=== PATIENT | female | born 1990 | race Caucasian/White ===

== ENCOUNTER → 2017-09-14 | Outpatient (REF) | payer OTHER | LOC: M LAB REF 09:36 | DX: N39.0 Urinary tract infection, site not specified (principal) ==

== ENCOUNTER → 2017-10-16 | Outpatient (REF) | payer OTHER ==
[2017-10-16 23:12] LABS: CHLAMYDIA DNA AMPLIFICATION NEGATIVE (NEGATIVE); GC DNA AMPLIFICATION NEGATIVE (NEGATIVE)
== END ==
LOC: M LAB REF 20:16
DX: R30.0 Dysuria (principal)

== ENCOUNTER → 2018-08-22 | Outpatient (CLI) | payer BC ==
[2018-08-22 13:56] LABS: BASO % 0.4 % (0.0-1.0); EOS # 0.1 10^3/uL (0.0-0.50); EOS % 1.2 % (0.0-3.0); HEMATOCRIT 40.1 % (36.0-47.0); HEMOGLOBIN 13.8 g/dl (12.0-15.5); IMMATURE GRANULOCYTE % 0.7 % (0-3.0); LYMPH # 2.2 10^3/uL (1.5-6.5); MEAN CORPUSCULAR HEMOGLOBIN 30.1 pg (27.0-33.0); MEAN CORPUSCULAR HGB CONC 34.4 g/dl (32.0-36.5); MEAN CORPUSCULAR VOLUME 87.4 fl (80.0-96.0); MONO # 0.7 10^3/uL (0.0-0.8); MONO % 7.4 % (0.0-5.0); NEUTROPHILS # 5.8 10^3/uL (1.8-7.7); NEUTROPHILS % 65.3 % (36.0-66.0); PLATELET COUNT, AUTOMATED 286 10^3/uL (150-450); RED BLOOD COUNT 4.59 10^6/uL (4.00-5.40); RED CELL DISTRIBUTION WIDTH 12.2 % (11.5-14.5)
[2018-08-22 14:48] LABS: HBsAg Prenatal NEGATIVE (NEGATIVE); HIV 1&2 SCREEN CENTAUR NEGATIVE (NEGATIVE); RUBELLA IgG QUALITATIVE EQUIVOCAL (IMMUNE)
[2018-08-22 14:48] LABS: HEPATITIS C VIRUS ABY INDEX 0.1 INDEX (<0.8)
[2018-08-22 15:50] LABS: CHLAMYDIA DNA AMPLIFICATION NEGATIVE (NEGATIVE); GC DNA AMPLIFICATION NEGATIVE (NEGATIVE)
== END ==
LOC: M SMT 09:17
DX: Z36.89 Encounter for other specified antenatal screening (principal)
CPT/HCPCS: 86762

== ENCOUNTER → 2018-09-19 | Outpatient (CLI) | payer BC | LOC: M SMT 09:41 | PROVIDERS: ATTEND Advanced Practice Midwife | DX: Z13.79 Encounter for other screening for genetic and chromosomal anomalies (principal) ==

== ENCOUNTER → 2018-11-06 | Outpatient (CLI) | payer BC ==
--- NOTE | 2018-11-06 11:36 | REP ---
Clinical: Anatomical evaluation. Comparison: None. Findings: Examination demonstrates a single live intrauterine in cephalic presentation. motion is identified by technologist. Placenta is noted right fundal and grade grade 1 without evidence for placenta previa or abruption. Amniotic fluid volume is normal. Cervix measures 3.4 cm in length and appears closed. No evidence for nuchal cord. Gestational age by current measurements 19 weeks 1 day with UNIQUE 04/01/2019 . FHR equals 144 beats per minute. BPD 4.5 cm 19 weeks 3 days HC 16.4 cm 19 weeks 1 day AC 14.3 cm 19 weeks 5 days FL 2.9 cm 19 weeks 0 days HL 2.8 cm 19 weeks 1 day HC/AC ratio 1.14 Estimated weight 287 grams ( 55th percentile). Anatomical assessment demonstrates normal structures including cranium, choroid plexus, cavum, cerebellum/posterior fossa, facial features, lungs, four-chamber heart/ventricular outflow tracts, diaphragm, stomach, cord insertion/three-vessel cord, kidneys/bladder, spine, and extremities. Impression: 1. Single live intrauterine in cephalic presentation demonstrating appropriate weight to biometrical measurements. 2. Anatomical assessment is complete and normal. Electronically Signed by Garrett Amor MD 11/06/2018 09:19 A
== END ==
LOC: M SMT 08:16
PROVIDERS: ATTEND Obstetrics & Gynecology
DX: Z34.82 Encounter for supervision of other normal pregnancy, second trimester (principal); Z36.89 Encounter for other specified antenatal screening; Z3A.19 19 weeks gestation of pregnancy

== ENCOUNTER → 2018-12-19 | Outpatient (CLI) | payer BC ==
[2018-12-19 13:09] LABS: HEMATOCRIT 34.9 % (36.0-47.0); HEMOGLOBIN 11.8 g/dl (12.0-15.5); MEAN CORPUSCULAR HEMOGLOBIN 30.7 pg (27.0-33.0); MEAN CORPUSCULAR HGB CONC 33.8 g/dl (32.0-36.5); MEAN CORPUSCULAR VOLUME 90.9 fl (80.0-96.0); PLATELET COUNT, AUTOMATED 259 10^3/uL (150-450); RED BLOOD COUNT 3.84 10^6/uL (4.00-5.40); WHITE BLOOD COUNT 11.7 10^3/uL (4.0-10.0)
== END ==
LOC: M SMT 09:53
PROVIDERS: ATTEND Advanced Practice Midwife
DX: Z34.02 Encounter for supervision of normal first pregnancy, second trimester (principal)

== ENCOUNTER → 2019-03-05 | Outpatient (REF) | payer OTHER | LOC: M LAB REF 16:51 | PROVIDERS: ATTEND Advanced Practice Midwife | DX: Z34.03 Encounter for supervision of normal first pregnancy, third trimester (principal); Z3A.00 Weeks of gestation of pregnancy not specified ==

== ENCOUNTER → 2019-03-23 | Outpatient (CLI) | payer OTHER ==
[~2019-03-23] MED LIST: ACET-683 PO; IBUP80TA PO; OMEP10CASR PO; VALA500T5 PO
--- NOTE | 2019-03-23 11:27 | REP ---
Obstetric sonography: History: Supervision of . growth study SCARLET. Size date discrepancy. Findings: Scanning through the gravid uterus demonstrates a viable single intrauterine gestation in a cephalic lie. motion is observed and heart rate is recorded at 124 beats per minute. An anterior grade 2 placenta is seen without evidence of previa or abruption. Amniotic fluid is subjectively normal. Closed cervical length is measured transabdominally at 3.6 cm. No extrauterine abnormalities observed. There has been less than expected interval growth. The umbilical cord is seen draping over the neck. Biometry chart: BPD 9.0 cm = 36 weeks 4 days Head circumference 32.1 cm = 36 weeks 2 days Abdominal circumference 32.6 cm = 36 weeks 4 days Femur length 7.0 cm = 36 weeks 0 days Humeral length 6.2 cm = 35 weeks 6 days HC/AC ratio normal 0.99. Cephalic index normal 0.80. Estimated weight 2909 grams, 6 pounds 6 ounces, 24th percentile for 38 weeks 5 days, SCARLET low normal 7.4 cm (7.2-23.0 cm), SD ratio slightly elevated 3.19 (1.60-2.60). Impression: Viable single intrauterine gestation at 36 weeks 1 day by today's composite criteria . Expected gestational age estimate based on prior sonography is 38 weeks 5 days. UNIQUE by prior sonography April 01, 2019. Less than expected interval growth. SD ratio in the umbilical cord artery by Doppler slightly elevated. Electronically Signed by Jerry Veliz MD 03/23/2019 11:49 A
== END ==
LOC: M RAD 08:37
PROVIDERS: ATTEND Advanced Practice Midwife
DX: O26.843 Uterine size-date discrepancy, third trimester (principal); Z3A.36 36 weeks gestation of pregnancy

== ENCOUNTER 2019-03-28 12:20 | Inpatient (IN) | payer OTHER ==
[~2019-03-28] VITALS: Ht 170.2 cm; Wt 78.3 kg
[2019-03-28] VITALS (12 sets, daily range): BP systolic 110–139; BP diastolic 66–87
[2019-03-28] MEDS ORDERED: OMEP10CASR PO (13:13)
[2019-03-28] MEDS ORDERED: VALA500T5 PO (13:13)
[2019-03-28 13:30] LABS: HEMATOCRIT 39.2 % (36.0-47.0); HEMOGLOBIN 13.4 g/dl (12.0-15.5); MEAN CORPUSCULAR HEMOGLOBIN 31.1 pg (27.0-33.0); MEAN CORPUSCULAR HGB CONC 34.2 g/dl (32.0-36.5); PLATELET COUNT, AUTOMATED 262 10^3/uL (150-450); RED BLOOD COUNT 4.31 10^6/uL (4.00-5.40); WHITE BLOOD COUNT 13.1 10^3/uL (4.0-10.0)
[2019-03-28] MEDS: miSOPROStol 50 MCG 1/2 TAB (S0191) SL SCH ×3 (13:58→22:03)
--- NOTE | 2019-03-28 16:07 | HPE ---
DATE OF ADMISSION: 03/28/2019 A 28-year-old G1, P0 female, 39-0/7 weeks gestation by 7-week ultrasound, estimated date of confinement (EDC) of 04/04/2019 presents for labor induction. She has occasional contractions. Denies vaginal bleeding. Has good movement. COURSE: Patient has a history of genital herpes and has had outbreaks during the . She has been on suppressive therapy with Valtrex during the . Her last outbreak was in October 2018. MEDICAL HISTORY: Noncontributory. SURGICAL HISTORY: Extraction of wisdom teeth. ALLERGIES: None. SOCIAL HISTORY: Patient denies cigarettes, alcohol, or drug use. She lives in [place], [place]. FAMILY HISTORY: Noncontributory. PHYSICAL EXAMINATION: Blood pressure 124/74, pulse 84. No apparent distress. Head and exam normal. Lungs clear. Heart regular rate and rhythm. Abdomen nontender, gravid. heart tones category 1. Sterile vaginal exam: 1 cm, 50%, -2, posterior, soft, vertex. Contractions rare. Extremities nontender. LABORATORY DATA: Blood type O positive, rubella equivocal. Diabetes screen normal. GBS negative 03/05/2019. ASSESSMENT: A 28-year-old G1 at 39-0/7 weeks gestation presents for labor induction. PLAN: Patient is admitted on 03/28/2019. Risks of induction were discussed.
[2019-03-28] MEDS ORDERED: LACTATED RINGER'S 1000 ML IV STA (19:31)
[2019-03-28] MEDS ORDERED: LR 1,000 ML IV SCH (19:45)
[2019-03-28] MEDS ORDERED: ONDANSETRON 4MG/2ML VIAL (J2405) IV SCH (23:00)
[2019-03-28] MEDS ORDERED: FENTANYL 2MCG/ML ROPIVACAINE 0.2% IN 0.9% NACL 100ML IVBAG As Ordered ONE (23:18)
[2019-03-28] MEDS ORDERED: ePHEDrine SULFATE 25 MG/5 ML(5MG/ML) SYRINGE IV PRN (23:45)
[2019-03-28] MEDS ORDERED: REFRIGERATOR IV KEYS XX PRN (23:45)
[2019-03-28] MEDS ORDERED: EPIDURAL/PCA KEYS XX PRN (23:45)
[2019-03-28] MEDS ORDERED: ONDANSETRON 4MG/2ML VIAL (J2405) IV PRN (23:45)
[2019-03-28] MEDS ORDERED: NALOXONE INJ 0.4 MG/1 ML VIAL (J2310) IV PRN (23:45)
[2019-03-28] MEDS ORDERED: diphenhydrAMINE INJ 50MG/ML VIAL (J1200) IV PRN (23:45)
[2019-03-28] MEDS ORDERED: EPIDURAL COMMENT XX SCH (23:45)
[2019-03-28] MEDS ORDERED: FENTANYL/ROPIVACAINE/NACL BAG 100 ML EPIDURAL SCH (23:45)
[2019-03-28] MEDS ORDERED: LACTATED RINGER'S 1000 ML IV PRN (23:45)
[2019-03-29] VITALS (31 sets, daily range): BP systolic 113–137; BP diastolic 60–89
[2019-03-29] MEDS ORDERED: OXYTOCIN 30 UNITS IN 0.9% NaCl 500ML IV BAG (J2590) As Ordered ONE (01:52)
[2019-03-29] MEDS ORDERED: OXYTOCIN DRIP 30 UNITS in APPROPRIATE DILUENT 1 EA IV ONE (02:45)
[2019-03-29] MEDS ORDERED: IBUPROFEN 600 MG TAB PO PRN (02:45)
[2019-03-29] MEDS ORDERED: IBUPROFEN 800 MG TAB PO PRN (02:45)
[2019-03-29] MEDS ORDERED: ACETAMINOPHEN TAB 650MG DOSE (2X325MG) PO PRN (02:45)
[2019-03-29] MEDS ORDERED: RHOGAM 300 MCG (1500 IU) INJ (J2790) IM SCH (02:45)
[2019-03-29] MEDS ORDERED: ONDANSETRON 4MG/2ML VIAL (J2405) IV PRN (02:45)
[2019-03-29] MEDS ORDERED: DOCUSATE SODIUM 100 MG CAP PO PRN (02:45)
[2019-03-29] MEDS ORDERED: MEASLES,MUMPS,RUBELLA VACCINE INJ (MMR-II) (90707) SC SCH (02:45)
[2019-03-29] MEDS ORDERED: DIBUCAINE 1% OINTMENT 30GM TOP PRN (02:45)
[2019-03-29] MEDS ORDERED: METHYLERGONOVINE MALEATE 0.2 MG TAB PO PRN (02:45)
[2019-03-29] MEDS: PRENATAL VITAMINS CHEWABLE TABLET PO SCH (10:02)
[2019-03-29] MEDS: ACETAMINOPHEN 500 MG TAB PO PRN (17:13)
[2019-03-30] MEDS: ACETAMINOPHEN 500 MG TAB PO PRN (05:35)
[2019-03-30 06:00] VITALS: BP 119/65
[2019-03-30] MEDS ORDERED: IBUP80TA PO (07:05)
[2019-03-30] MEDS ORDERED: ACET-683 PO (07:05)
[2019-03-30] MEDS: PRENATAL VITAMINS CHEWABLE TABLET PO SCH (14:43)
--- NOTE | 2019-03-30 18:01 | DN ---
DATE: 03/29/2019 PREDELIVERY DIAGNOSIS: 39 weeks, labor induction. POSTDELIVERY DIAGNOSIS: Delivered. PROCEDURE: Spontaneous vaginal delivery. MOTOR GRADER OPERATOR: Dr. Jesus Noyola ANESTHESIA: Epidural. ESTIMATED BLOOD LOSS: 300 mL. FINDINGS: A 5-pound, 13-ounce male infant, scores 8 and 9. DELIVERY SUMMARY: After a 20-minute second stage, the patient had spontaneous delivery of a 5-pound, 13-ounce male infant, scores 8 and 9, under epidural anesthesia. There was no nuchal cord. The shoulders delivered with ease. The was handed to the mother. The cord was doubly clamped and cut. The placenta delivered spontaneously and appeared to be intact. The patient received IV pitocin immediately after delivery of the placenta. A first-degree perineal laceration was repaired with 2-0 chromic in the usual fashion. Sponge and needle counts were correct.
== END 2019-03-30 16:15 | disposition home or self-care (01) | DRG 560 ==
LOC: M LDI 12:20 → M OBS 03-29 04:32
PROVIDERS: ADMIT Specialist; ATTEND Specialist
PROC: 10E0XZZ Delivery of Products of Conception, External Approach (ICD-10-PCS; principal; 2019-03-29)
PROC: 0HQ9XZZ Repair Perineum Skin, External Approach (ICD-10-PCS; 2019-03-29)
PROC: 3E0P7GC Introduction of Other Therapeutic Substance into Female Reproductive, Via Natural or Artificial Opening (ICD-10-PCS; 2019-03-29)
DX: O70.0 First degree perineal laceration during delivery (principal); Z3A.39 39 weeks gestation of pregnancy; Z37.0 Single live birth

== ENCOUNTER → 2019-12-09 | Outpatient (REF) | payer OTHER, MEDICAID ==
[2019-12-09 17:43] LABS: MEAN CORPUSCULAR HEMOGLOBIN 29.9 pg (27.0-33.0); MEAN CORPUSCULAR HGB CONC 33.3 g/dl (32.0-36.5); MEAN CORPUSCULAR VOLUME 89.6 fl (80.0-96.0); PLATELET COUNT, AUTOMATED 316 10^3/uL (150-450); RED BLOOD COUNT 4.69 10^6/uL (4.00-5.40)
[2019-12-09 19:43] LABS: CHLAMYDIA DNA AMPLIFICATION NEGATIVE (NEGATIVE); GC DNA AMPLIFICATION NEGATIVE (NEGATIVE)
[2019-12-10 06:21] LABS: HIV 1&2 SCREEN CENTAUR NEGATIVE (NEGATIVE); RUBELLA IgG QUALITATIVE IMMUNE (IMMUNE)
[2019-12-11 09:17] LABS: HEPATITIS B SURFACE ANTIGEN NEGATIVE (NEGATIVE); HEPATITIS C VIRUS ABY INDEX 0.1 INDEX (<0.8)
== END ==
LOC: M PLALAB 14:57
PROVIDERS: ATTEND Advanced Practice Midwife
DX: Z34.81 Encounter for supervision of other normal pregnancy, first trimester (principal)

== ENCOUNTER → 2020-01-06 | Outpatient (CLI) | payer OTHER, MEDICAID | LOC: M PLALAB 10:07 | PROVIDERS: ATTEND Obstetrics & Gynecology | DX: Z34.81 Encounter for supervision of other normal pregnancy, first trimester (principal); Z36.89 Encounter for other specified antenatal screening ==

== ENCOUNTER → 2020-03-15 | Outpatient (CLI) | payer OTHER ==
--- NOTE | 2020-03-15 17:09 | REP ---
REASON: anatomy. Multiple ultrasonographic images of the gravid uterus show a single living intrauterine gestation in a transverse head to maternal right position. Doppler interrogation of the heart shows a heart rate of 158 beats per minute. The placenta is anterior and not low lying. The subjective amniotic fluid volume is within normal limits. The cervix measures 4.6 cm in length and is closed. Evaluation of the maternal adnexal spaces showed no abnormalities. BPD 4.5 cm = 19 weeks 4 days HC 17.0 cm = 19 weeks 4 days AC 15.0 cm = 20 weeks 2 days FL 3.1 cm = 19 weeks 4 days The estimated weight is 320 grams, which is at the 47th percentile for 19 week 6 day gestational age. anatomical structures seen as unremarkable are as follows: Thalami, cavum septum pellucidum, cerebellum, cisterna magna, cerebral ventricles, upper lip, four-chamber heart, right and left ventricular outflow tracts, stomach, cord insertion, three-vessel umbilical cord, kidneys, urinary bladder, spine, and upper and lower extremities. IMPRESSION: Single living intrauterine gestation, as described above with an estimated gestational age of 19 weeks 4 days via composite criteria and an estimated date of delivery of 08/05/2020 by today's exam. No anomalies were detected.
== END ==
LOC: M WHC 10:59
PROVIDERS: ATTEND Advanced Practice Midwife
DX: Z34.82 Encounter for supervision of other normal pregnancy, second trimester (principal); Z3A.19 19 weeks gestation of pregnancy

== ENCOUNTER → 2020-05-11 | Outpatient (CLI) | payer OTHER, MEDICAID ==
[2020-05-11 19:24] LABS: BASO # 0.1 10^3/uL (0.0-0.2); BASO % 0.5 % (0.0-1.0); EOS # 0.1 10^3/uL (0.0-0.5); EOS % 1.1 % (0.0-3.0); HEMATOCRIT 35.9 % (36.0-47.0); LYMPH # 2.7 10^3/uL (1.5-5.0); MEAN CORPUSCULAR HEMOGLOBIN 31.8 pg (27.0-33.0); MEAN CORPUSCULAR HGB CONC 33.4 g/dl (32.0-36.5); MEAN CORPUSCULAR VOLUME 95.2 fl (80.0-96.0); MONO # 0.8 10^3/uL (0.0-0.8); MONO % 6.5 % (0.0-5.0); NEUTROPHILS # 7.9 10^3/uL (1.5-8.5); NEUTROPHILS % 66.6 % (36.0-66.0); PLATELET COUNT, AUTOMATED 233 10^3/uL (150-450); RED BLOOD COUNT 3.77 10^6/uL (4.00-5.40); WHITE BLOOD COUNT 11.8 10^3/uL (4.0-10.0)
== END ==
LOC: M PLALAB 13:24
PROVIDERS: ATTEND Advanced Practice Midwife
DX: Z36.89 Encounter for other specified antenatal screening (principal)

== ENCOUNTER 2020-06-03 04:15 | Outpatient (CLI) | payer OTHER, MEDICAID ==
[~2020-06-03] VITALS: Ht 170.2 cm; Wt 78.2 kg
[2020-06-03 04:25] VITALS: BP 125/62
[2020-06-03 04:26] VITALS: BP 125/62
[2020-06-03 05:16] VITALS: BP 127/74
[2020-06-03] MEDS ORDERED: LACTATED RINGER'S 1000 ML IV STA (06:00)
[2020-06-03] MEDS ORDERED: LR 1,000 ML IV SCH (06:00)
[2020-06-03 06:13] LABS: BASO # 0.1 10^3/uL (0.0-0.2); BASO % 0.4 % (0.0-1.0); EOS # 0.1 10^3/uL (0.0-0.5); EOS % 0.4 % (0.0-3.0); LYMPH # 1.9 10^3/uL (1.5-5.0); LYMPH % 13.9 % (24.0-44.0); MEAN CORPUSCULAR HEMOGLOBIN 31.7 pg (27.0-33.0); MEAN CORPUSCULAR HGB CONC 34.3 g/dl (32.0-36.5); MEAN CORPUSCULAR VOLUME 92.3 fl (80.0-96.0); MONO # 0.7 10^3/uL (0.0-0.8); MONO % 5.1 % (0.0-5.0); NEUTROPHILS # 10.5 10^3/uL (1.5-8.5); NEUTROPHILS % 78.3 % (36.0-66.0); PLATELET COUNT, AUTOMATED 235 10^3/uL (150-450); RED BLOOD COUNT 3.79 10^6/uL (4.00-5.40); WHITE BLOOD COUNT 13.4 10^3/uL (4.0-10.0)
[2020-06-03 06:19] VITALS: BP 98/54
--- NOTE | 2020-06-03 06:38 | REPVR ---
PROCEDURE INFORMATION: Exam: US Retroperitoneal Limited, Kidneys Exam date and time: 06/03/2020 6:20 AM Age: 29 years old Clinical indication: Abdominal pain; Flank; Left; ; Additional info: Left nephrolithiasis TECHNIQUE: Imaging protocol: Real-time ultrasound of the retroperitoneum with image documentation. Examination was focused on the kidneys. COMPARISON: No relevant prior studies available. FINDINGS: Right kidney: The right kidney measures 12.2 x 5.8 x 5.6 centimetres. There is no right renal mass, stone or cyst. There is mild right-sided hydronephrosis. Left kidney: The left kidney measures 12.6 x 4.2 x 6.1 centimetres. There is no left renal mass, stone or cyst. There is no left-sided hydronephrosis. Uterus: Intrauterine is noted with heart rate measured at 129 beats per minutes. IMPRESSION: 1. Mild right-sided hydronephrosis possibly secondary to gravid uterus. 2. No right or left renal stones and no left-sided hydronephrosis seen. 3. Low margin heart rate at 129 beats per minutes. If indicated dedicated ultrasound of the fetus may be obtained. Electronically signed by: Rajinder Hinojosa On 06/03/2020 06:37:52 AM
== END 2020-06-03 07:46 | disposition home or self-care (01) ==
LOC: M LDO 04:15
PROVIDERS: ATTEND Specialist
DX: O99.89 Other specified diseases and conditions complicating pregnancy, childbirth and the puerperium (principal); R10.9 Unspecified abdominal pain; Z3A.28 28 weeks gestation of pregnancy

== ENCOUNTER → 2020-06-20 | Outpatient (REF) | payer OTHER, MEDICAID | LOC: M LAB REF 12:31 | PROVIDERS: ATTEND Physician Assistant | DX: R19.7 Diarrhea, unspecified (principal) ==

== ENCOUNTER → 2020-06-21 | Outpatient (REF) | payer OTHER, MEDICAID ==
[2020-06-21 13:41] LABS: BASO % 0.4 % (0.0-1.0); EOS % 0.5 % (0.0-3.0); HEMOGLOBIN 12.4 g/dl (12.0-15.5); LYMPH # 1.9 10^3/uL (1.5-5.0); LYMPH % 22.3 % (24.0-44.0); MEAN CORPUSCULAR HEMOGLOBIN 31.6 pg (27.0-33.0); MEAN CORPUSCULAR HGB CONC 33.5 g/dl (32.0-36.5); MEAN CORPUSCULAR VOLUME 94.4 fl (80.0-96.0); MONO % 11.2 % (0.0-5.0); NEUTROPHILS # 5.4 10^3/uL (1.5-8.5); NEUTROPHILS % 64.3 % (36.0-66.0); PLATELET COUNT, AUTOMATED 233 10^3/uL (150-450); RED BLOOD COUNT 3.92 10^6/uL (4.00-5.40); WHITE BLOOD COUNT 8.5 10^3/uL (4.0-10.0)
== END ==
LOC: M LABDRWAD 12:26 → M LAB REF 12:26
PROVIDERS: ATTEND Physician Assistant
DX: R19.7 Diarrhea, unspecified (principal)

== ENCOUNTER → 2020-07-05 | Outpatient (REF) | payer OTHER, MEDICAID | LOC: M SFHCWAGY 13:32 | PROVIDERS: ATTEND Advanced Practice Midwife | DX: Z34.93 Encounter for supervision of normal pregnancy, unspecified, third trimester (principal) ==

== ENCOUNTER 2020-07-27 11:36 | Inpatient (IN) | payer OTHER, MEDICAID ==
[~2020-07-27] VITALS: Ht 170.2 cm; Wt 80.6 kg
[2020-07-27] VITALS (10 sets, daily range): BP systolic 96–162; BP diastolic 47–69
[2020-07-27] MEDS ORDERED: VALT1TAB PO (11:58)
[2020-07-27] MEDS ORDERED: PRENTAB9 PO (11:58)
[2020-07-27] MEDS ORDERED: OMEP40CA97 PO (11:58)
[2020-07-27] MEDS: miSOPROStol 50 MCG 1/2 TAB (S0191) PO SCH ×2 (12:35→16:38)
[2020-07-27 12:41] LABS: HEMATOCRIT 34.8 % (36.0-47.0); HEMOGLOBIN 11.8 g/dl (12.0-15.5); MEAN CORPUSCULAR HEMOGLOBIN 31.2 pg (27.0-33.0); MEAN CORPUSCULAR HGB CONC 33.9 g/dl (32.0-36.5); MEAN CORPUSCULAR VOLUME 92.1 fl (80.0-96.0); PLATELET COUNT, AUTOMATED 223 10^3/uL (150-450); RED BLOOD COUNT 3.78 10^6/uL (4.00-5.40); WHITE BLOOD COUNT 10.2 10^3/uL (4.0-10.0)
[2020-07-27] MEDS ORDERED: LR 1,000 ML IV SCH (20:35)
[2020-07-27] MEDS ORDERED: OXYTOCIN DRIP 30 UNITS in IV 1 EA IV SCH (20:45)
[2020-07-27] MEDS ORDERED: FENTANYL 2MCG/ML ROPIVACAINE 0.2% IN 0.9% NACL 100ML IVBAG As Ordered ONE (23:30)
[2020-07-28] MEDS ORDERED: REFRIGERATOR IV KEYS XX PRN (00:25)
[2020-07-28] MEDS ORDERED: FENTANYL/ROPIVACAINE/NACL BAG 100 ML EPIDURAL SCH (00:25)
[2020-07-28] MEDS ORDERED: diphenhydrAMINE 50MG/ML VIAL (J1200) IV PRN (00:25)
[2020-07-28] MEDS ORDERED: LACTATED RINGER'S 1000 ML IV PRN (00:25)
[2020-07-28] MEDS ORDERED: ONDANSETRON 4MG/2ML VIAL IV PRN (00:25)
[2020-07-28] MEDS ORDERED: EPIDURAL COMMENT XX SCH (00:25)
[2020-07-28] MEDS ORDERED: NALOXONE INJ 0.4MG/1ML VIAL (J2310 PER 1MG) IV PRN (00:25)
[2020-07-28] MEDS ORDERED: ePHEDrine SULFATE 25 MG/5 ML(5MG/ML) SYRINGE IV PRN (00:25)
[2020-07-28] MEDS ORDERED: EPIDURAL/PCA KEYS XX PRN (00:25)
[2020-07-28] MEDS ORDERED: OXYTOCIN DRIP 30 UNITS in IV 1 EA IV SCH (06:23)
[2020-07-28] MEDS ORDERED: DIBUCAINE 1% OINTMENT 30GM TOP PRN (06:30)
[2020-07-28] MEDS ORDERED: METHYLERGONOVINE MALEATE 0.2 MG TAB PO PRN (06:30)
[2020-07-28] MEDS ORDERED: MEASLES,MUMPS,RUBELLA VACCINE INJ (MMR-II) (90707) SC SCH (06:30)
[2020-07-28] MEDS ORDERED: RHOGAM 300 MCG (1500 IU) INJ (J2790) IM SCH (06:30)
[2020-07-28] MEDS ORDERED: ACETAMINOPHEN TAB 650MG DOSE (2X325MG) PO PRN (06:30)
[2020-07-28] MEDS ORDERED: DOCUSATE SODIUM 100 MG CAP PO PRN (06:30)
[2020-07-28] MEDS ORDERED: IBUPROFEN 600MG TAB PO PRN (06:30)
[2020-07-28 08:28] VITALS: BP 115/62
[2020-07-28] MEDS: PRENATAL VITAMINS CHEWABLE TABLET PO SCH (08:47)
[2020-07-28] MEDS: IBUPROFEN 800 MG TAB PO PRN ×2 (10:03→17:30)
[2020-07-28] MEDS: ACETAMINOPHEN 500 MG TAB PO PRN ×2 (15:00→21:23)
[2020-07-28 18:00] VITALS: BP 120/59
[2020-07-29] MEDS: IBUPROFEN 800 MG TAB PO PRN (05:13)
[2020-07-29 06:00] VITALS: BP 104/59
--- NOTE | 2020-07-29 07:29 | DS.PDOC ---
Discharge Summary General Date of Admission Jul 27, 2020 at 11:36 Date of Discharge Jul 29, 2020 Discharge Summary PROCEDURES PERFORMED DURING STAY: spontaneous vaginal delivery ADMITTING DIAGNOSES: 1. elective induction of labor at term DISCHARGE DIAGNOSES: 1.elective induction of labor at term, delivered COMPLICATIONS/CHIEF COMPLAINT: LABOR. HISTORY OF PRESENT ILLNESS/HOSPITAL COURSE: Sol is a 29yo [id number] s/p uncomplicated at 39w1d, delivering at 0537 on 07/28, after undergoing elective IOL. She has had a benign course. At time of discharge, vitals are wnl, she is afebrile. There is no evidence of infection and she is hemodynamically stable. DISCHARGE MEDICATIONS: Please see below. ALLERGIES: Please see below. PHYSICAL EXAMINATION ON DISCHARGE: VITAL SIGNS: Please see below. GENERAL: patient resting comfortably Abdomen: soft, NTTP, fundus firm at u-2cm Extremities: no pain with palpation of calves LABORATORY DATA: Please see below. ACTIVITY: As tolerated, vaginal rest 6 weeks, no heavy lifting DIET: regular DISPOSITION: home DISCHARGE PLAN/INSTRUCTIONS: 1. Discharge home today 2. Routine visit in 6 weeks 3. Regular diet 4. Undecided on contraception, will readdress at 6wk PP visit 5. Discussed return precautions at length DISCHARGE CONDITION: Stable TIME SPENT ON DISCHARGE: Greater than 20 minutes. Paula Barba MD Vital Signs/I&Os Vital Signs Date Time Temp Pulse Resp B/P (MAP) Pulse Ox O2 Delivery O2 Flow Rate FiO2 07/28/20 18:00 98.4 66 20 120/59 (79) Discharge Medications Scheduled Omeprazole (Omeprazole) 40 Mg Capsule.dr, 40 MG PO DAILY, (Reported) No.137/Iron/Folic Acd ( Vitamin Tablet) 1 Each Tablet, 1 TAB PO DAILY, (Reported) Valacyclovir HCl (Valtrex) 1,000 Mg Tablet, 1 GRAM PO DAILY, (Reported) Scheduled PRN Acetaminophen (Acetaminophen) 500 Mg Tablet, 1,000 MG PO Q6HP PRN for PAIN SCALE 6-10 Allergies Coded Allergies: shellfish derived (Verified Allergy, Intermediate, HIVES, 03/28/19) Paula Barba MD Jul 28, 2020 19:42
--- NOTE | 2020-07-29 07:35 | IPNPDOC ---
Progress Note Date of Service: Jul 29, 2020 Day#: 1 Progress Note PPD 1 SUBJECT: Sol is a 29yo [id number] s/p uncomplicated at 39w1d, delivering at 0537 on 07/28, after undergoing elective IOL, doing well day # 1. She has been ambulating, voiding spontaneously without issue and tolerating regular diet. Breast feeding without issue. Reports lochia is like a normal period. No f/c/n/v/CP/SOB. OBJECTIVE: VITAL SIGNS: Within normal limits, afebrile. Alert and oriented times three. Abdomen: Fundus firm at U-2. Soft, NTTP. Extremities: no pain with palpation of calves ASSESSMENT: Sol is a 29yo [id number] s/p uncomplicated at 39w1d, delivering at 0537 on 07/28, after undergoing elective IOL, doing well day # 1. Vitals within normal limits, afebrile, hemodynamically stable with no evidence of infection. PLAN: 1. Discharge to home today. 2. Tylenol and Motrin for pain. 3. Encourage breast feeding and ambulation. 4. Nexplanon for contraception 5. Routine PP visit in 6 weeks in clinic. 6. Discussed return precautions at length. Paula Barba MD VS, I&O, 24H, Fishbone Vital Signs/I&O Vital Signs Date Time Temp Pulse Resp B/P (MAP) Pulse Ox O2 Delivery O2 Flow Rate FiO2 07/29/20 06:00 97.1 71 20 104/59 (74) I&O- Last 24 Hours up to 6 AM 07/29/20 06:00 Output Total 250 ml Balance -250 ml Paula Barba MD Jul 29, 2020 07:35
[2020-07-29] MEDS ORDERED: DOCU100C16 PO (07:37)
[2020-07-29] MEDS ORDERED: IBUP80TA PO (07:37)
[2020-07-29] MEDS: PRENATAL VITAMINS CHEWABLE TABLET PO SCH (08:43)
[2020-07-29] MEDS: ACETAMINOPHEN 500 MG TAB PO PRN (12:00)
== END 2020-07-29 13:15 | disposition home or self-care (01) | DRG 560 ==
LOC: M LDI 11:36 → M OBS 07-28 08:23
PROVIDERS: ADMIT Advanced Practice Midwife; ATTEND Advanced Practice Midwife
PROC: 3E0DXGC Introduction of Other Therapeutic Substance into Mouth and Pharynx, External Approach (ICD-10-PCS; 2020-07-27)
PROC: 3E033VJ Introduction of Other Hormone into Peripheral Vein, Percutaneous Approach (ICD-10-PCS; 2020-07-27)
PROC: 10E0XZZ Delivery of Products of Conception, External Approach (ICD-10-PCS; principal; 2020-07-28)
PROC: 0HQ9XZZ Repair Perineum Skin, External Approach (ICD-10-PCS; 2020-07-28)
DX: O70.0 First degree perineal laceration during delivery (principal); Z37.0 Single live birth; O98.52 Other viral diseases complicating childbirth; Z3A.39 39 weeks gestation of pregnancy; B00.9 Herpesviral infection, unspecified; Z91.013 Allergy to seafood; Z79.899 Other long term (current) drug therapy

== ENCOUNTER → 2021-11-28 | Outpatient (CLI) | payer OTHER ==
[~2021-11-28] MED LIST changes: +DOCU100C16 PO; +OMEP40CA4 PO; +PRENTAB9 PO; +VALT1TAB PO
== END ==
LOC: M WHC 09:14
PROVIDERS: ATTEND Advanced Practice Midwife
DX: Z53.9 Procedure and treatment not carried out, unspecified reason (principal)

== ENCOUNTER → 2022-01-05 | Outpatient (CLI) | payer OTHER | LOC: M WHC 09:34 | PROVIDERS: ATTEND Advanced Practice Midwife | DX: Z34.92 Encounter for supervision of normal pregnancy, unspecified, second trimester (principal) ==

== ENCOUNTER → 2022-01-15 | Outpatient (CLI) | payer OTHER ==
[2022-01-15 13:39] LABS: HEMATOCRIT 36.9 % (36.0-47.0); HEMOGLOBIN 12.5 g/dl (12.0-15.5); MEAN CORPUSCULAR HEMOGLOBIN 30.9 pg (27.0-33.0); MEAN CORPUSCULAR HGB CONC 33.9 g/dl (32.0-36.5); MEAN CORPUSCULAR VOLUME 91.1 fl (80.0-96.0); PLATELET COUNT, AUTOMATED 258 10^3/uL (150-450); RED BLOOD COUNT 4.05 10^6/uL (4.00-5.40); WHITE BLOOD COUNT 10.1 10^3/uL (4.0-10.0)
[2022-01-15 14:49] LABS: HEPATITIS C VIRUS ABY INDEX 0.2 INDEX (<0.8); HIV 1&2 SCREEN CENTAUR NEGATIVE (NEGATIVE)
[2022-01-15 22:33] LABS: GC DNA AMPLIFICATION NEGATIVE (NEGATIVE)
== END ==
LOC: M WUC 10:23
PROVIDERS: ATTEND Obstetrics & Gynecology
DX: Z34.90 Encounter for supervision of normal pregnancy, unspecified, unspecified trimester (principal)

== ENCOUNTER → 2022-01-15 | Outpatient (REF) | payer OTHER | LOC: M LAB REF 16:54 | PROVIDERS: ATTEND Nurse Practitioner Family | DX: L29.2 Pruritus vulvae (principal) ==

== ENCOUNTER → 2022-03-07 | Outpatient (CLI) | payer OTHER ==
[2022-03-07 13:52] LABS: HEMATOCRIT 35.4 % (36.0-47.0); HEMOGLOBIN 11.8 g/dl (12.0-15.5); MEAN CORPUSCULAR HGB CONC 33.3 g/dl (32.0-36.5); MEAN CORPUSCULAR VOLUME 90.1 fl (80.0-96.0); PLATELET COUNT, AUTOMATED 247 10^3/uL (150-450); RED BLOOD COUNT 3.93 10^6/uL (4.00-5.40); WHITE BLOOD COUNT 9.8 10^3/uL (4.0-10.0)
== END ==
LOC: M PLALAB 10:32
PROVIDERS: ATTEND Obstetrics & Gynecology
DX: Z34.82 Encounter for supervision of other normal pregnancy, second trimester (principal); Z3A.24 24 weeks gestation of pregnancy

== ENCOUNTER → 2022-04-24 | Outpatient (REF) | payer OTHER | LOC: M SFHCWAGY 13:11 | PROVIDERS: ATTEND Advanced Practice Midwife | DX: Z34.93 Encounter for supervision of normal pregnancy, unspecified, third trimester (principal); Z3A.00 Weeks of gestation of pregnancy not specified ==

== ENCOUNTER 2022-05-23 20:11 | Inpatient (IN) | payer OTHER ==
[~2022-05-23] VITALS: Ht 170.2 cm; Wt 77.5 kg
[2022-05-23] VITALS (7 sets, daily range): BP systolic 99–123; BP diastolic 57–74
[2022-05-23] MEDS ORDERED: VALT1TAB PO (20:41)
[2022-05-23] MEDS ORDERED: OXYTOCIN 30 UNITS IN 0.9% NaCl 500ML IV BAG (J2590) As Ordered ONE (20:55)
[2022-05-23] MEDS ORDERED: LACTATED RINGER'S 1000 ML IV STA (20:58)
[2022-05-23] MEDS ORDERED: METHYLERGONOVINE MALEATE 0.2 MG/ML VIAL (J2210) IM PRN (21:00)
[2022-05-23] MEDS ORDERED: OXYTOCIN DRIP 30 UNITS in IV 1 EA IV SCH (21:00)
[2022-05-23] MEDS ORDERED: LR 1,000 ML IV SCH (21:00)
[2022-05-23] MEDS ORDERED: CARBOPROST TROMETHAMINE 250 MCG/ML AMP IM PRN (21:00)
[2022-05-23] MEDS ORDERED: LIDOCAINE 1% MDV 20ML VIAL INFIL PRN (21:00)
[2022-05-23] MEDS ORDERED: OXYTOCIN INJ 10 UNITS/ML VIAL (J2590) IM PRN (21:00)
[2022-05-23] MEDS ORDERED: TRANEXAMIC ACID INJection 1,000 MG in NS 100 ML IV PRN (21:00)
[2022-05-23] MEDS ORDERED: OXYTOCIN DRIP 30 UNITS in IV 1 EA IV PRN ×4 (21:00)
[2022-05-23 21:45] LABS: HEMATOCRIT 32.9 % (36.0-47.0); MEAN CORPUSCULAR HEMOGLOBIN 27.7 pg (27.0-33.0); MEAN CORPUSCULAR HGB CONC 33.4 g/dl (32.0-36.5); MEAN CORPUSCULAR VOLUME 82.9 fl (80.0-96.0); PLATELET COUNT, AUTOMATED 268 10^3/uL (150-450); RED BLOOD COUNT 3.97 10^6/uL (4.00-5.40)
[2022-05-24] VITALS (37 sets, daily range): BP systolic 92–130; BP diastolic 49–90
[2022-05-24] MEDS ORDERED: FENTANYL 2MCG/ML ROPIVACAINE 0.2% IN 0.9% NACL 100ML IVBAG As Ordered ONE (01:25)
[2022-05-24] MEDS ORDERED: OXYTOCIN 30 UNITS IN 0.9% NaCl 500ML IV BAG (J2590) As Ordered ONE (03:38)
[2022-05-24] MEDS ORDERED: DIBUCAINE 1% OINTMENT 30GM TOP PRN (03:40)
[2022-05-24] MEDS ORDERED: ANUSOL HC CREAM 30GM TOP PRN (03:40)
[2022-05-24] MEDS ORDERED: ACETAMINOPHEN 500 MG TAB PO PRN (03:40)
[2022-05-24] MEDS ORDERED: METHYLERGONOVINE MALEATE 0.2 MG TAB PO PRN (03:40)
[2022-05-24] MEDS ORDERED: IBUPROFEN 600MG TAB PO PRN (03:40)
[2022-05-24] MEDS ORDERED: ACETAMINOPHEN TAB 650MG DOSE (2X325MG) PO PRN (03:40)
[2022-05-24] MEDS ORDERED: DOCUSATE SODIUM 100MG CAPSULE PO PRN (03:40)
[2022-05-24] MEDS ORDERED: RHOGAM 300 MCG (1500 IU) INJ (J2790) IM SCH (03:40)
[2022-05-24] MEDS ORDERED: OXYTOCIN DRIP 30 UNITS in IV 1 EA IV SCH ×4 (03:40)
[2022-05-24] MEDS ORDERED: FENTANYL/ROPIVACAINE/NACL BAG 100 ML EPIDURAL SCH (03:45)
[2022-05-24] MEDS ORDERED: ONDANSETRON 4MG 2ML VIAL IV PRN (03:45)
[2022-05-24] MEDS ORDERED: LR 500 ML IV PRN (03:45)
[2022-05-24] MEDS ORDERED: NALOXONE INJ 0.4MG/1ML VIAL (J2310 PER 1MG) IV PRN (03:45)
[2022-05-24] MEDS ORDERED: diphenhydrAMINE 50MG/ML VIAL (J1200) IV PRN (03:45)
[2022-05-24] MEDS ORDERED: ePHEDrine SULFATE 25 MG/5 ML(5MG/ML) SYRINGE IVP PRN (03:45)
[2022-05-24] MEDS ORDERED: EPIDURAL/PCA KEYS XX PRN (03:45)
[2022-05-24] MEDS: PRENATAL VITAMINS CHEWABLE TABLET PO SCH (09:43)
[2022-05-24] MEDS: IBUPROFEN 800 MG TAB PO PRN ×2 (11:45→19:39)
[2022-05-25 05:58] VITALS: BP 100/57
[2022-05-25] MEDS: IBUPROFEN 800 MG TAB PO PRN (06:01)
[2022-05-25] MEDS: PRENATAL VITAMINS CHEWABLE TABLET PO SCH (08:33)
[2022-05-26] MEDS ORDERED: MEASLES,MUMPS,RUBELLA VACCINE INJ (MMR-II) (90707) SC.IMMUN ONE (09:00)
== END 2022-05-25 16:40 | disposition home or self-care (01) | DRG 560 ==
LOC: M LDI 20:11 → M OBS 05-24 05:19
PROVIDERS: ADMIT Advanced Practice Midwife; ATTEND Advanced Practice Midwife
PROC: 10E0XZZ Delivery of Products of Conception, External Approach (ICD-10-PCS; principal; 2022-05-23)
PROC: 3E033VJ Introduction of Other Hormone into Peripheral Vein, Percutaneous Approach (ICD-10-PCS; 2022-05-23)
PROC: 0HQ9XZZ Repair Perineum Skin, External Approach (ICD-10-PCS; 2022-05-23)
DX: O98.52 Other viral diseases complicating childbirth (principal); B00.9 Herpesviral infection, unspecified; Z37.0 Single live birth; Z3A.39 39 weeks gestation of pregnancy; Z91.013 Allergy to seafood; Z79.899 Other long term (current) drug therapy; O70.0 First degree perineal laceration during delivery

== ENCOUNTER → 2022-12-28 | Outpatient (REF) | payer OTHER | LOC: M SFHCWAGY 13:05 | PROVIDERS: ATTEND Advanced Practice Midwife | DX: Z12.4 Encounter for screening for malignant neoplasm of cervix (principal) ==

== ENCOUNTER → 2024-08-20 | Outpatient (REF) | payer BC, OTHER ==
[2024-08-20 15:43] LABS: GC DNA AMPLIFICATION NEGATIVE (NEGATIVE)
== END ==
LOC: M SFHCWAGY 09:20
PROVIDERS: ATTEND Nurse Practitioner Family
DX: Z34.81 Encounter for supervision of other normal pregnancy, first trimester (principal)

== ENCOUNTER → 2024-08-24 | Outpatient (CLI) | payer BC ==
[2024-08-24 13:24] LABS: HEMATOCRIT 37.9 % (36.0-47.0); MEAN CORPUSCULAR HEMOGLOBIN 29.9 pg (27.0-33.0); MEAN CORPUSCULAR HGB CONC 34.3 g/dl (32.0-36.5); MEAN CORPUSCULAR VOLUME 87.1 fl (80.0-96.0); PLATELET COUNT, AUTOMATED 289 10^3/uL (150-450); RED BLOOD COUNT 4.35 10^6/uL (4.00-5.40); WHITE BLOOD COUNT 8.9 10^3/uL (4.0-10.0)
[2024-08-24 13:54] LABS: HIV 1&2 SCREEN NEGATIVE (NEGATIVE)
[2024-08-24 14:05] LABS: HEPATITIS C VIRUS ABY INDEX < 0.02 INDEX (<0.8)
== END ==
LOC: M PLALAB 10:34
PROVIDERS: ATTEND Nurse Practitioner Family
DX: Z34.81 Encounter for supervision of other normal pregnancy, first trimester (principal)

== ENCOUNTER 2024-10-18 05:05 | Emergency (ER) | payer BC ==
[~2024-10-18] VITALS: Ht 170.2 cm; Wt 71.7 kg
[2024-10-18 05:30] LABS: KETONE, URINE AUTO RFX NEGATIVE (NEGATIVE); LEUKOCYTE ESTERASE UR AUTO RFX NEGATIVE (NEGATIVE); MUCUS, URINE RFX SMALL (NEGATIVE); NITRITE, URINE AUTO RFX NEGATIVE (NEGATIVE); RBC, URINE AUTO RFX 0 /HPF (0-3); SQUAM EPITHELIAL CELL UR AURFX 0 /HPF (0-6); WBC, URINE AUTO RFX 0 /HPF (0-3)
[2024-10-18 06:15] LABS: BASO % 0.3 % (0.0-1.0); EOS # 0.1 10^3/uL (0.0-0.5); EOS % 1.1 % (0.0-3.0); HEMATOCRIT 34.3 % (36.0-47.0); HEMOGLOBIN 11.8 g/dl (12.0-15.5); LYMPH # 1.4 10^3/uL (1.5-5.0); LYMPH % 16.2 % (24.0-44.0); MEAN CORPUSCULAR HEMOGLOBIN 30.6 pg (27.0-33.0); MEAN CORPUSCULAR HGB CONC 34.4 g/dl (32.0-36.5); MEAN CORPUSCULAR VOLUME 88.9 fl (80.0-96.0); MONO # 0.6 10^3/uL (0.0-0.8); MONO % 7.1 % (2.0-8.0); NEUTROPHILS # 6.6 10^3/uL (1.5-8.5); NEUTROPHILS % 74.3 % (36.0-66.0); PLATELET COUNT, AUTOMATED 231 10^3/uL (150-450); RED BLOOD COUNT 3.86 10^6/uL (4.00-5.40); WHITE BLOOD COUNT 8.9 10^3/uL (4.0-10.0)
[2024-10-18 06:38] LABS: LIPASE 31 U/L (12-53)
[2024-10-18 06:40] LABS: ALKALINE PHOSPHATASE 48 U/L (35-104); ALT/SGPT 22 U/L (7.0-40); AST/SGOT 35 U/L (<34); BILIRUBIN,DIRECT < 0.1 MG/DL (<0.4); BILIRUBIN,TOTAL 0.3 MG/DL (0.3-1.2); BLOOD UREA NITROGEN 8 MG/DL (9-23); CALCIUM LEVEL 8.3 MG/DL (8.5-10.1); CARBON DIOXIDE LEVEL 24 MMOL/L (20-31); CHLORIDE LEVEL 107 MMOL/L (98-107); CREATININE FOR GFR 0.61 MG/DL (0.55-1.30); GLOMERULAR FILTRATION RATE > 60.0 (>60); GLUCOSE, FASTING 95 MG/DL (60-100); POTASSIUM SERUM 4.6 MMOL/L (3.5-5.1); SODIUM LEVEL 140 MMOL/L (136-145); TOTAL PROTEIN 6.3 G/DL (5.7-8.2)
[2024-10-18] MEDS ORDERED: MORPHINE 2 MG/ML 1ML VIAL IV PRN (08:00)
[2024-10-18] MEDS: ONDANSETRON 4MG 2ML VIAL IV ONE (10:00)
[2024-10-18] MEDS: ACETAMINOPHEN *IV* 1,000 MG in IV 1 EA IV ONE (10:19)
[2024-10-18 10:45] VITALS: TEMP 98.2; O2SAT 99
[2024-10-18 10:50] VITALS: BP 92/53
== END 2024-10-18 11:06 | disposition home or self-care (01) ==
LOC: M ED 05:05
DX: O26.891 Other specified pregnancy related conditions, first trimester (principal); R10.32 Left lower quadrant pain; Z3A.19 19 weeks gestation of pregnancy
CPT/HCPCS: 76775; 76811; 80048; 80076; 81001; 83690; 85025; 93041; 96374; 99285; J0131

== ENCOUNTER → 2024-11-05 | Outpatient (CLI) | payer BC | LOC: M WHC 12:59 | PROVIDERS: ATTEND Advanced Practice Midwife | DX: Z34.82 Encounter for supervision of other normal pregnancy, second trimester (principal); Z3A.21 21 weeks gestation of pregnancy ==

== ENCOUNTER → 2024-12-15 | Outpatient (CLI) | payer BC ==
[2024-12-15 14:36] LABS: HEMATOCRIT 34.5 % (36.0-47.0); HEMOGLOBIN 11.6 g/dl (12.0-15.5); MEAN CORPUSCULAR HEMOGLOBIN 30.5 pg (27.0-33.0); MEAN CORPUSCULAR HGB CONC 33.6 g/dl (32.0-36.5); MEAN CORPUSCULAR VOLUME 90.8 fl (80.0-96.0); PLATELET COUNT, AUTOMATED 238 10^3/uL (150-450); WHITE BLOOD COUNT 11.1 10^3/uL (4.0-10.0)
[2024-12-15 14:39] LABS: GLUCOSE CHALLENGE TEST 1 HOUR 114 MG/DL (LESS THAN 140)
[2024-12-15 15:09] LABS: HIV 1&2 SCREEN NEGATIVE (NEGATIVE)
[2024-12-15 15:17] LABS: HEPATITIS C VIRUS ABY INDEX 0.02 INDEX (<0.8)
[2024-12-15 15:39] LABS: Trichomonas vaginalis (AMP) NOT DETECTED (NEGATIVE)
[2024-12-15 16:02] LABS: GC DNA AMPLIFICATION NEGATIVE (NEGATIVE)
== END ==
LOC: M PLALAB 10:43
PROVIDERS: ATTEND Advanced Practice Midwife
DX: Z34.82 Encounter for supervision of other normal pregnancy, second trimester (principal)